=== PATIENT | male | born 1975 | race Caucasian/White ===

== ENCOUNTER 2020-09-13 10:38 | Emergency (ER) | payer BC ==
[2020-09-13] MEDS ORDERED: AZITHROMYCIN 250 MG TAB ONE (13:13)
[2020-09-13] MEDS ORDERED: dexAMETHasone 10 MG/ML VIAL ONE (13:14)
--- NOTE | 2020-09-13 13:39 | EDPHYS ---
Physician Documentation [facility] Name: Amauri Estrada Age: 45 yrs Sex: Male : 1975 Arrival Date: 09/13/2020 Time: 10:41 Bed 19 Private MD: Antonio Hill T ED Physician Dominick Luque HPI: 09/13 12:26 This 45 yrs old Male presents to ER via Ambulatory with complaints of carlitos Breathing Difficulty, COVID+. 13:36 Onset: The symptoms/episode began/occurred gradually, 7 day(s) ago. Duration: The [facility] symptoms are continuous. Associated signs and symptoms: Pertinent positives: non-productive cough. This is a 45 year old male with no chronic medical conditions that presents to the ED with complaints of cough, shortness of breath. Patient is covid 19 positive. Symptoms have been ongoing since this past . . Historical: - Allergies: 11:16 No Known Allergies; aa5 - PMHx: 11:16 None; aa5 - PSHx: 11:16 None; aa5 - Immunization history:: Adult Immunizations unknown. - Social history:: Smoking status: Patient denies any tobacco usage or history of. ROS: 12:27 Eyes: Negative for injury, pain, redness, and discharge, ENT: Negative for injury, carlitos pain, and discharge, Neck: Negative for injury, pain, and swelling, Abdomen/GI: Negative for abdominal pain, nausea, vomiting, diarrhea, and constipation, Back: Negative for injury and pain, : Negative for injury, bleeding, discharge, and swelling, MS/Extremity: Negative for injury and deformity, Skin: Negative for injury, rash, and discoloration, Neuro: Negative for headache, weakness, numbness, tingling, and seizure, Psych: Negative for depression, anxiety, suicide ideation, homicidal ideation, and hallucinations, Allergy/Immunology: Negative for hives, rash, and allergies, Endocrine: Negative for neck swelling, polydipsia, polyuria, polyphagia, and marked weight changes, Hematologic/Lymphatic: Negative for swollen nodes, abnormal bleeding, and unusual bruising. 12:27 Constitutional: Positive for body aches, fatigue, fever, malaise. 12:27 Cardiovascular: Positive for chest pain. 12:27 Respiratory: Positive for cough, shortness of breath, wheezing, of the left posterior upper lobe, left posterior lower lobe, right posterior middle lobe and right posterior lower lobe. Exam: 12:27 Constitutional: This is a well developed, well nourished patient who is awake, alert, carlitos and in no acute distress. Head/Face: Normocephalic, atraumatic. Eyes: Pupils equal round and reactive to light, extra-ocular motions intact. Lids and lashes normal. Conjunctiva and sclera are non-icteric and not injected. Cornea within normal limits. Periorbital areas with no swelling, redness, or edema. ENT: Nares patent. No nasal discharge, no septal abnormalities noted. Tympanic membranes are normal and external auditory canals are clear. Oropharynx with no redness, swelling, or masses, exudates, or evidence of obstruction, uvula midline. Mucous membranes moist. Neck: Trachea midline, no thyromegaly or masses palpated, and no cervical lymphadenopathy. Supple, full range of motion without nuchal rigidity, or vertebral point tenderness. No Meningismus. Chest/axilla: Normal chest wall appearance and motion. Nontender with no deformity. No lesions are appreciated. Cardiovascular: Regular rate and rhythm with a normal S1 and S2. No gallops, murmurs, or rubs. Normal PMI, no JVD. No pulse deficits. Abdomen/GI: Soft, non-tender, with normal bowel sounds. No distension or tympany. No guarding or rebound. No evidence of tenderness throughout. Back: No spinal tenderness. No costovertebral tenderness. Full range of motion. Male : Normal genitalia with no discharge or lesions. Skin: Warm, dry with normal turgor. Normal color with no rashes, no lesions, and no evidence of cellulitis. MS/ Extremity: Pulses equal, no cyanosis. Neurovascular intact. Full, normal range of motion. Neuro: Awake and alert, GCS 15, oriented to person, place, time, and situation. Cranial nerves II-XII grossly intact. Motor strength 5/5 in all extremities. Sensory grossly intact. Cerebellar exam normal. Normal gait. Psych: Awake, alert, with orientation to person, place and time. Behavior, mood, and affect are within normal limits. 12:27 Respiratory: mild respiratory distress is noted, Respirations: labored breathing, that is mild, asymmetrical chest movement, is not seen, accessory muscle usage, is absent, grunting, is not present, nasal flaring, is not appreciated, paradoxical chest movement, is absent, prolonged exhalation, is not present, Breath sounds: decreased breath sounds, rhonchi, wheezing: expiratory 12:27 Musculoskeletal/extremity: DVT Exam: No signs of deep vein thrombosis. no pain, no carlitos swelling, no tenderness, negative Homans' sign noted on exam, no appreciated bluish discoloration, no erythema, no increased warmth. 12:34 ECG was reviewed by the Attending Physician. [facility] Vital Signs: 11:16 BP 131 / 83; Pulse 78; Resp 18 S; Temp 98.7(O); Pulse Ox 98% on R/A; Weight 95.25 kg aa5 (R); Height 5 ft. 8 in. (172.72 cm) (R); 13:30 BP 126 / 85; Pulse 72; Resp 18; Temp 98.9; Pulse Ox 97% ; bp 11:16 Body Mass Index 31.93 (95.25 kg, 172.72 cm) aa5 MDM: 12:08 Patient medically screened. [facility] 12:29 Differential diagnosis: Bronchitis CHF exacerbation, Chronic Obstructive Pulmonary carlitos Disease pneumonia, pulmonary edema, Pulmonary Embolism reactive airway disease. Antibiotic administration: Rocephin and Zithromax given. The patient's Wells Deep Vein Thrombosis Score was calculated as follows: Total Score: 0-2 Pts- Low Risk. The patient's pulmonary embolism risk score was calculated as follows: Total Score: 0-2 points. This patient was found to be at low risk for a pulmonary embolism by using the Well's assessment criteria. Immunization status:. Data reviewed: vital signs, nurses notes, lab test result(s), EKG, radiologic studies, CT scan, plain films. Data reviewed:. 13:33 ED course: . alise 09/13 12:25 Order name: EKG; Complete Time: : [facility] EC:34 Rate is 76 beats/min. Rhythm is regular. QRS [place] is Normal. HI interval is normal. QRS carlitos interval is normal. QT interval is normal. No Q waves. T waves are Normal. No ST changes noted. Clinical impression: NSR w/ Non-specific ST/T Changes and No evidence of ischemia. Interpreted by me. Reviewed by me. Administered Medications: 12:38 CANCELLED (Duplicate Order): Aspirin 81 mg PO once jmm 12:38 CANCELLED (Duplicate Order): Pepcid 20 mg IVP once jmm 12:38 CANCELLED (Duplicate Order): Albuterol HFA Inhaler 4 puffs Inhalation once jmm 12:39 CANCELLED (Duplicate Order): NS 0.9% 500 ml IV at bolus once jmm 12:39 CANCELLED (Duplicate Order): NS 0.9% 1000 ml IV at 125 ml/hr continuous jmm 12:39 CANCELLED (Duplicate Order): Decadron - Dexamethasone 10 mg IVP once jmm 12:39 CANCELLED (Duplicate Order): Zithromax 500 mg IVPB once over 1 hrs; mix in 250 mL NS jmm 12:39 CANCELLED (Duplicate Order): Rocephin 1 grams IV at per protocol once; Given slow IV jmm push per pharmacy instructions 12:50 Drug: Decadron 10 mg Route: IM; Site: left deltoid; bp 13:03 Follow up: Response: No adverse reaction bp 12:50 Drug: AZITHromycin 500 mg Route: PO; bp 13:03 Follow up: Response: No adverse reaction bp Disposition: 09/14 08:16 Co-signature as Attending Physician, Dominick Luque MD I agree with the assessment and carlitos plan of care. Disposition: 09/13/20 13:38 Discharged to Home. Impression: Dyspnea, SARS-associated coronavirus as the cause of diseases classified elsewhere - covid 19. - Condition is Stable. - Discharge Instructions: Shortness of Breath, Shortness of Breath, Oxcg-xc-Rafk, Aspirin and Your Heart, COVID-19. - Prescriptions for Prednisone 20 mg Oral Tablet - take 3 tablet by ORAL route once daily for 5 days; 15 tablet. Zithromax Z- Chuy 250 mg Oral Tablet - take 1 tablet by ORAL route as directed for 5 days Day 1 - take two (2) tablets one time. Day 2, 3, 4 , 5 take one (1) tablet once daily.; 6 tablet. Albuterol Sulfate 90 mcg/actuation - inhale 1-2 puff by INHALATION route every 4-6 hours; 1 Inhaler. - Medication Reconciliation Form, Thank You Letter, Antibiotic Education, Prescription Opioid Use form. - Follow up: Antonio Hill; When: 2 - 3 days; Reason: Recheck today's complaints, Continuance of care, Re-evaluation by your physician. Follow up: Carlitos Graf; When: 2 - 3 days; Reason: Recheck today's complaints, Re-evaluation by your physician. - Problem is new. - Symptoms have improved. Signatures: Dispatcher [employer] EDMissy Leon, KARRI-Jil ZENG-Dominick Jang MD MD cha Mickail, Joel, PA PA jmm Calderon, Audri, RN RN aa5 Bo Hill RN RN bp Corrections: (The following items were deleted from the chart) 09/13 12:38 12:25 Aspirin 81 mg PO once ordered. [facility] : 12:25 Pepcid 20 mg IVP once ordered. [facility] : 12:25 Albuterol HFA Inhaler 4 puffs Inhalation once ordered. [facility] : 12:25 NS 0.9% 500 ml IV at bolus once ordered. [facility] : 12:25 NS 0.9% 1000 ml IV at 125 ml/hr continuous ordered. [facility] : 12:25 Decadron - Dexamethasone 10 mg IVP once ordered. [facility] : 12:25 Zithromax 500 mg IVPB once over 1 hrs; mix in 250 mL NS ordered. [facility] : 12:25 Rocephin 1 grams IV at per protocol once; Given slow IV push per pharmacy [facility] instructions ordered. [facility] : 12:25 Cardiac monitoring ordered. [facility] : 12:25 EKG - Nurse/Tech ordered. [facility] : 12:25 IV Saline Lock ordered. [facility] : 12:25 O2 Sat Monitoring ordered. [facility] : 12:25 Labs collected and sent ordered. [facility] : 12:25 Oxygen Per Protocol ordered. [facility] : 12:25 BASIC METABOLIC PANEL+C.LAB.BRZ ordered. [facility] : 12:25 HEPATIC FUNCTION+C.LAB.BRZ ordered. [facility] : 12:25 PROTIME (+INR)+COAG.LAB.BRZ ordered. [facility] : 12:25 CBC+H.LAB.BRZ ordered. [facility] : 12:25 MAGNESIUM+C.LAB.BRZ ordered. [facility] 12:44 12:25 PROBNP+C.LAB.BRZ ordered. [facility] 12:44 12:25 TROPONIN (EMERG DEPT USE ONLY)+C.LAB.BRZ ordered. [facility] EDMS 12:56 12:28 Chest For PE Angio+CT.RAD.BRZ ordered. [facility] EDMS 13:13 12:26 Chest Single View+RAD.RAD.BRZ ordered. [facility] 13:36 13:33 ED course: This is a 45 year old male with no chronic medical conditions that alise presents to the ED with complaints of cough, shortness of breath. Patient is covid 19 positive. Symptoms have been ongoing since this past . . [facility] 13:46 13:38 09/13/2020 13:38 Discharged to Home. Impression: Dyspnea; SARS-associated kb coronavirus as the cause of diseases classified elsewhere - covid 19. Condition is Stable. Discharge Instructions: Shortness of Breath, Shortness of Breath, Mdus-za-Bgrl, Aspirin and Your Heart, COVID-19. Prescriptions for dexamethasone 2 mg Oral tablet - take 1 tablet by ORAL route 3 times per day; 15 tablet, Pepcid 20 mg Oral Tablet - take 1 tablet by ORAL route every 12 hours for 10 days; 20 tablet, Albuterol Sulfate 90 mcg/actuation - inhale 1-2 puff by INHALATION route every 4-6 hours; 1 Inhaler, Zithromax 500 mg Oral Tablet - take 1 tablet by ORAL route once daily for 5 days; 5 tablet. and Forms are Medication Reconciliation Form, Thank You Letter, Antibiotic Education, Prescription Opioid Use. Follow up: Antonio Hill; When: 2 - 3 days; Reason: Recheck today's complaints, Continuance of care, Re-evaluation by your physician. Follow up: Carlitos Graf; When: 2 - 3 days; Reason: Recheck today's complaints, Re-evaluation by your physician. Problem is new. Symptoms have improved. alise
--- NOTE | 2020-09-13 13:39 | ER ---
Nurse's Notes [facility] Name: Amauri Estrada Age: 45 yrs Sex: Male : 1975 Arrival Date: 09/13/2020 Time: 10:41 Bed 19 Private MD: Antonio Hill T Diagnosis: Dyspnea;SARS-associated coronavirus as the cause of diseases classified elsewhere-covid 19 Presentation: 09/13 11:15 Chief complaint: Patient states: Diagnosed with COVID-19 on Tuesday. Pt reports SOB and aa5 cough. Coronavirus screen: cough unrelated to allergies, shortness of breath, Client presents with at least one sign or symptom that may indicate coronavirus-19. Standard/surgical mask placed on the client. Provider contacted for isolation considerations. Ebola Screen: Patient negative for fever greater than or equal to 101.5 degrees Fahrenheit, and additional compatible Ebola Virus Disease symptoms. Initial Sepsis Screen: Does the patient meet any 2 criteria? No. Patient's initial sepsis screen is negative. Does the patient have a suspected source of infection? No. Patient's initial sepsis screen is negative. Risk Assessment: Do you want to hurt yourself or someone else? Patient reports no desire to harm self or others. Onset of symptoms was August 2020. 11:15 Method Of Arrival: Ambulatory aa5 11:15 Acuity: ZION 3 aa5 Triage Assessment: 11:15 General: Appears in no apparent distress. uncomfortable, ill, Behavior is cooperative, bp appropriate for age, anxious. Pain: Denies pain. EENT: No deficits noted. Neuro: No deficits noted. Cardiovascular: Rhythm is sinus rhythm. Respiratory: Reports shortness of breath cough that is Onset: The symptoms/episode began/occurred at an unknown time. the patient has mild shortness of breath. GI: No signs and/or symptoms were reported involving the gastrointestinal system. : No signs and/or symptoms were reported regarding the genitourinary system. Derm: No deficits noted. Musculoskeletal: No deficits noted. Historical: - Allergies: 11:16 No Known Allergies; aa5 - PMHx: 11:16 None; aa5 - PSHx: 11:16 None; aa5 - Immunization history:: Adult Immunizations unknown. - Social history:: Smoking status: Patient denies any tobacco usage or history of. Screenin:15 Abuse screen: Denies threats or abuse. Denies injuries from another. bp 11:15 Nutritional screening: No deficits noted. Tuberculosis screening: No symptoms or risk bp factors identified. Fall Risk None identified. Assessment: 11:15 General: SEE TRIAGE NOTE. Cardiovascular: Rhythm is sinus rhythm. Respiratory: Airway bp is patent Respiratory effort is even, unlabored, Breath sounds are clear bilaterally. 12:30 Reassessment: Patient appears in no apparent distress at this time. No changes from bp previously documented assessment. Patient and/or family updated on plan of care and expected duration. Pain level reassessed. Patient is alert, oriented x 3, equal unlabored respirations, skin warm/dry/pink. 14:06 Reassessment: PT D/C HOME AMBULATORY, DX WITH DYSPNEA. bp Vital Signs: 11:16 BP 131 / 83; Pulse 78; Resp 18 S; Temp 98.7(O); Pulse Ox 98% on R/A; Weight 95.25 kg aa5 (R); Height 5 ft. 8 in. (172.72 cm) (R); 13:30 BP 126 / 85; Pulse 72; Resp 18; Temp 98.9; Pulse Ox 97% ; bp 11:16 Body Mass Index 31.93 (95.25 kg, 172.72 cm) aa5 ED Course: 10:41 Patient arrived in ED. ag5 10:42 Antonio Hill MD is Private Physician. ag5 11:15 Arm band placed on. aa5 11:15 Patient has correct armband on for positive identification. Bed in low position. Call bp light in reach. Side rails up X2. 11:16 Triage completed. aa5 12:07 Dominick Luque MD is Attending Physician. carlitos 12:38 Flaco Rushing PA is PHCP. [facility] 12:45 Bo Hill, SHAMEKA is Primary Nurse. bp 13:38 Antonio Hill MD is Referral Physician. jmm 13:38 Carlitos Graf MD is Referral Physician. [facility] 14:06 No provider procedures requiring assistance completed. Patient did not have IV access bp during this emergency room visit. Administered Medications: 12:38 CANCELLED (Duplicate Order): Aspirin 81 mg PO once jm 12:38 CANCELLED (Duplicate Order): Pepcid 20 mg IVP once [facility] 12:38 CANCELLED (Duplicate Order): Albuterol HFA Inhaler 4 puffs Inhalation once m 12:39 CANCELLED (Duplicate Order): NS 0.9% 500 ml IV at bolus once m 12:39 CANCELLED (Duplicate Order): NS 0.9% 1000 ml IV at 125 ml/hr continuous jmm 12:39 CANCELLED (Duplicate Order): Decadron - Dexamethasone 10 mg IVP once [facility] 12:39 CANCELLED (Duplicate Order): Zithromax 500 mg IVPB once over 1 hrs; mix in 250 mL NS [facility] 12:39 CANCELLED (Duplicate Order): Rocephin 1 grams IV at per protocol once; Given slow IV m push per pharmacy instructions 12:50 Drug: Decadron 10 mg Route: IM; Site: left deltoid; bp 13:03 Follow up: Response: No adverse reaction bp 12:50 Drug: AZITHromycin 500 mg Route: PO; bp 13:03 Follow up: Response: No adverse reaction bp Outcome: 13:38 Discharge ordered by . [facility] 13:46 Patient left the ED. kb 14:06 Discharged to home ambulatory. bp 14:06 Condition: stable 14:06 Discharge instructions given to patient, Instructed on discharge instructions, follow up and referral plans. medication usage, Demonstrated understanding of instructions, follow-up care, medications, Prescriptions given X 3. Signatures: Missy Pierce, B[employer]IAL VAULT SETTER-C B[employer]IAL VAULT SETTER-Dominick Jang MD MD cha Mickail, Joel, PA PA jmm Calderon, Audri, RN RN aa5 Bo Hill RN RN Arlyn Bauer 5
[2020-09-13 13:51] VITALS: BP 131/83; TEMP 98.7; O2SAT 98
== END 2020-09-13 13:46 | disposition home or self-care (01) ==
LOC: ER 10:38
DX: U07.1 COVID-19 (principal); R06.00 Dyspnea, unspecified
CPT/HCPCS: 96372; 99284; J1100

== ENCOUNTER 2024-01-30 22:30 | Emergency (ER) | payer BC ==
[2024-01-30] MEDS ORDERED: ASPIRIN 81 MG CHEWABLE TABLET ONE (22:54)
[2024-01-30] MEDS ORDERED: ONDANSETRON 4 MG/2 ML VIAL ONE (22:54)
[2024-01-30] MEDS ORDERED: MORPHINE 4 MG/ML SYR ONE (22:54)
[2024-01-30] MEDS ORDERED: DIAZEPAM 5 MG TABLET ONE (22:55)
[2024-01-30 23:02] LABS: Absolute Basophils 0.1 K/uL (0-0.5); Absolute Eosinophils 0.1 K/uL (0-0.5); Absolute Lymphocytes (CBC) 1.8 K/uL (0.7-4.9); Absolute Monocytes 0.8 K/uL (0.1-1.3); Absolute Neutrophil 5.7 K/uL (1.8-8.0); Basophils % 0.7 % (0-1.3); Eosinophils % 0.7 % (0-4.4); Hematocrit 45.8 % (39.6-49.0); Hemoglobin 15.7 g/dL (13.6-17.9); Lymphocytes % 21.1 % (15.3-44.8); MCH 32.1 pg (27.0-35.0); MCHC 34.3 g/dL (32.0-36.0); MCV 93.5 fL (80-100); MPV 8.2 fL (7.6-11.3); Monocytes % 9.8 % (3.3-12.3); Neutrophils % 67.7 % (41.7-73.7); Nucleated Red Blood Cells % 0.1 % (0-0); Platelets 283 thou/uL (152-406)
[2024-01-30 23:04] LABS: PT Prothrombin Time 10.1 SECONDS (9.5-12.5); Protime INR 0.92
[2024-01-30 23:14] LABS: Anion Gap 11.3 mEq/L (5.0-15.0); Bilirubin Direct 0.2 mg/dL (0-0.2); Bilirubin Indirect, Calculated 0.5 mg/dL (0.2-0.8); Bilirubin Total 0.7 mg/dL (0.2-1.0); Magnesium 2.5 mg/dL (1.6-2.4); Potassium 3.3 mEq/L (3.5-5.1); Troponin High Sensitivity 25.9 pg/mL (<58.9)
--- NOTE | 2024-01-31 02:44 | ER ---
Nurse's Notes [facility] Name: Amauri Estrada Age: 48 yrs Sex: Male : 1975 Arrival Date: 01/30/2024 Time: 22:30 Bed 17 Private MD: Diagnosis: Noncardiac chest pain, elevated blood pressure Presentation: 01/29 22:45 Chief complaint: Patient states: Pt c/o non-reproducible, non-radiating midsternal tl4 chest pressure and left arm pain since 1999 tonight. Pt states pain started at dinner and feels like indigestion. Pt states he has felt 'bad' all day. Pt denies nausea, diaphoresis, SOB. Coronavirus screen: At this time, the client does not indicate any symptoms associated with coronavirus-19. Ebola Screen: No symptoms or risks identified at this time. Initial Sepsis Screen: Does the patient meet any 2 criteria? No. Patient's initial sepsis screen is negative. Does the patient have a suspected source of infection? No. Patient's initial sepsis screen is negative. Risk Assessment: Do you want to hurt yourself or someone else? Patient reports no desire to harm self or others. Onset of symptoms was January 30, 2024 at 20:00. 22:45 Method Of Arrival: Ambulatory tl4 22:45 Acuity: ZION 2 tl4 Triage Assessment: 22:48 General: Appears uncomfortable, Behavior is calm, cooperative. Pain: Complains of pain tl4 in chest and left arm. EENT: No signs and/or symptoms were reported regarding the EENT system. Neuro: Level of Consciousness is awake, alert, obeys commands, Oriented to person, place, time, situation, Moves all extremities. Full function Gait is steady, Speech is normal. Cardiovascular: Reports chest pain, fatigue, Denies diaphoresis, lightheadedness, nausea, palpitations, shortness of breath, syncope, Capillary refill < 3 seconds Patient's skin is warm and dry. Respiratory: Airway is patent Respiratory effort is even, unlabored, Respiratory pattern is regular, symmetrical. GI: No signs and/or symptoms were reported involving the gastrointestinal system. : No signs and/or symptoms were reported regarding the genitourinary system. Derm: No signs and/or symptoms reported regarding the dermatologic system. Musculoskeletal: No signs and/or symptoms reported regarding the musculoskeletal system. Historical: - Allergies: 22:47 No Known Allergies; tl4 - Home Meds: 22:47 None [Active]; tl4 - PMHx: 22:47 None; tl4 - PSHx: 22:47 None; tl4 - Immunization history:: Adult Immunizations unknown. - Infectious Disease History:: Denies. - Social history:: Smoking status: Patient denies any tobacco usage or history of. - Family history:: not pertinent. Screenin:[address] [facility] ED Fall Risk Assessment (Adult) History of falling in the last 3 months, tl4 including since admission No falls in past 3 months (0 pts) Confusion or Disorientation No (0 pts) Intoxicated or Sedated No (0 pts) Impaired Gait No (0 pts) Mobility Assist Device Used No (0 pt) Altered Elimination No (0 pt) Score/Fall Risk Level 0 - 2 = Low Risk Oriented to surroundings, Maintained a safe environment, Educated pt \T\ family on fall prevention, incl call for assistance when getting out of bed, Assessed \T\ reinforced patient's understanding of fall precautions. Abuse screen: Denies threats or abuse. Denies injuries from another. Nutritional screening: No deficits noted. Tuberculosis screening: No symptoms or risk factors identified. Assessment: 22:32 General: Appears uncomfortable, Behavior is cooperative, anxious. Pain: Complains of ha1 pain in chest and behind the eyes Pain does not radiate. Pain currently is 7 out of 10 on a pain scale. Quality of pain is described as pressure, Pain began suddenly. Neuro: Level of Consciousness is awake, alert, obeys commands, Oriented to person, place, time, situation. Cardiovascular: Reports chest pain, Heart tones S1 S2 present Capillary refill < 3 seconds Patient's skin is warm and dry. Pulses are all present. Rhythm is sinus rhythm. Respiratory: Airway is patent Respiratory effort is even, unlabored, Respiratory pattern is regular, symmetrical. Derm: Skin is pink, warm \T\ dry. Musculoskeletal: Circulation, motion, and sensation intact. Range of motion: intact in all extremities. 23:00 Reassessment: Patient and/or family updated on plan of care and expected duration. Pain ha1 level reassessed. 23:56 Reassessment: Patient and/or family updated on plan of care and expected duration. Pain ha1 level reassessed. Patient is alert, oriented x 3, equal unlabored respirations, skin warm/dry/pink. pain 4/10 Patient states feeling better. Patient states symptoms have improved. 01/30 01:00 Reassessment: Patient and/or family updated on plan of care and expected duration. Pain ha1 level reassessed. Patient is alert, oriented x 3, equal unlabored respirations, skin warm/dry/pink. Patient states feeling better. Patient states symptoms have improved. 02:00 Reassessment: Patient and/or family updated on plan of care and expected duration. Pain ha1 level reassessed. Patient is alert, oriented x 3, equal unlabored respirations, skin warm/dry/pink. pain 2/10 Patient states feeling better. Patient states symptoms have improved. 02:55 Reassessment: Patient and/or family updated on plan of care and expected duration. Pain ha1 level reassessed. Patient is alert, oriented x 3, equal unlabored respirations, skin warm/dry/pink. Patient denies pain at this time. Patient states feeling better. Patient states symptoms have improved. Vital Signs: 01/29 22:45 BP 175 / 115; Pulse 91; Resp 16; Temp 98.4(O); Pulse Ox 99% on R/A; Weight 95.25 kg; tl4 Height 5 ft. 8 in. ; Pain 6/10; 23:56 BP 158 / 106; Pulse 88; Resp 17 S; Pulse Ox 99% on R/A; ha1 01/30 00:24 BP 166 / 122; Pulse 79; Resp 17 S; Pulse Ox 96% on R/A; ha1 00:57 BP 163 / 111; Pulse 77; Resp 16 S; Pulse Ox 98% on R/A; ha1 01:15 BP 153 / 104; Pulse 78; Resp 16 S; Pulse Ox 100% on R/A; ha1 02:00 BP 161 / 102; Pulse 78; Resp 15 S; Pulse Ox 96% on R/A; ha1 02:57 BP 146 / 102; Pulse 74; Resp 16 S; Temp 98.1; Pulse Ox 98% on R/A; ha1 01/29 22:45 Body Mass Index 31.93 (95.25 kg, 172.72 cm) tl4 01/29 22:45 Pain Scale: Adult tl4 Stockwell Coma Score: 03:53 Eye Response: spontaneous(4). Motor Response: obeys commands(6). Verbal Response: sp4 oriented(5). Total: 15. ED Course: 01/29 22:30 Patient arrived in ED. mr 22:31 Emeka Mcleod MD is Attending Physician. sp4 22:44 EKG done, by ED staff, reviewed by Emeka Mcleod MD. tl4 22:45 Patient has correct armband on for positive identification. Placed in gown. Bed in low tl4 position. Call light in reach. Side rails up X 1. Provided Education on: ED process, call artis. Client placed on continuous cardiac and pulse oximetry monitoring. NIBP monitoring applied. vehicle monitor technician on. 22:47 Triage completed. tl4 22:50 O2 via room air. tl4 22:50 Inserted saline lock: 22 gauge in left antecubital area, using aseptic technique. Blood lg3 collected. 23:27 XRAY Chest (1 view) In Process Unspecified. EDMS 23:56 Prisca Wong, SHAMEKA is Primary Nurse. ha1 01/30 02:43 Johnathon Salter DO is Referral Physician. sp4 02:43 Matthew Curiel MD is Referral Physician. sp4 03:02 No provider procedures requiring assistance completed. IV discontinued, intact, ha1 bleeding controlled, No redness/swelling at site. Pressure dressing applied. 03:04 Arm band placed on right wrist. ha1 Administered Medications: 01/29 22:59 Drug: Diazepam PO 5 mg PO once Route: PO; lg3 23:25 Follow up: Response: No adverse reaction; Marked relief of symptoms; Anxiety decreased ha1 22:59 Drug: Aspirin PO Chewable Tablet 324 mg PO once; 81 mg tablets x 4 Route: PO; lg3 23:25 Follow up: Response: No adverse reaction; Marked relief of symptoms ha1 22:59 Drug: morphine IVP or IV 4 mg IVP once over 4 mins Route: IVP; Infused Over: 4 mins; lg3 Site: left antecubital; 23:25 Follow up: Response: No adverse reaction; Marked relief of symptoms; Pain is decreased; ha1 RASS: Alert and Calm (0) 22:59 Drug: Ondansetron IVP 4 mg IVP once; over 2 minutes Route: IVP; Site: left antecubital; lg3 23:25 Follow up: Response: No adverse reaction; Marked relief of symptoms ha1 Medication: 22:49 VIS not applicable for this client. tl4 Outcome: 01/30 02:44 Discharge ordered by . bob 03:02 Discharged to home ambulatory, ha1 03:02 Condition: stable 03:02 Discharge instructions given to patient, Instructed on discharge instructions, follow up and referral plans. Demonstrated understanding of instructions, follow-up care, 03:06 Patient left the ED. ha1 Signatures: Dispatcher [employer] EDMS Michaela Gill, Reg Reg mr Betsy Leon, RN RN lg3 Prisca Wong, RN RN ha1 Emeka Mcleod MD MD sp4 Wenceslao Sherman RN RN tl4
--- NOTE | 2024-01-31 02:44 | EDPHYS ---
Physician Documentation [facility] Name: Amauri Estrada Age: 48 yrs Sex: Male : 1975 Arrival Date: 01/30/2024 Time: 22:30 Bed 17 Private MD: ED Physician Emeka Mcleod HPI: 01/29 22:32 This 48 yrs old Male presents to ER via Unassigned with complaints of Chest sp4 Tightness, Numbness Of Hand. 01/30 03:53 Patient is a basically healthy 48-year-old male who presents with acute onset chest sp4 discomfort associated with numbness of the left hand. Patient states this occurred while he was eating dinner. Patient states he is going through divorce currently. . Historical: - Allergies: 01/29 22:47 No Known Allergies; tl4 - Home Meds: 22:47 None [Active]; tl4 - PMHx: 22:47 None; tl4 - PSHx: 22:47 None; tl4 - Immunization history:: Adult Immunizations unknown. - Infectious Disease History:: Denies. - Social history:: Smoking status: Patient denies any tobacco usage or history of. - Family history:: not pertinent. ROS: 01/30 03:53 Constitutional: Negative for fever, chills, and weight loss, positive for chest sp4 pressure left arm numbness All other systems are negative, Exam: 02:37 ECG was reviewed by the Attending Physician. EKG 2238 normal sinus rhythm, rate 92 sp4 03:53 Constitutional: This is a well developed, well nourished patient who is awake, alert, sp4 and in no acute distress. Head/Face: Normocephalic, atraumatic. Eyes: Pupils equal round and reactive to light, extra-ocular motions intact. Lids and lashes normal. Conjunctiva and sclera are not injected. Cornea within normal limits. Periorbital areas with no swelling, redness, or edema. ENT: Nares patent. No nasal discharge, no septal abnormalities noted. Tympanic membranes are normal and external auditory canals are clear. Oropharynx with no redness, swelling, or masses, exudates, or evidence of obstruction, uvula midline. Mucous membranes moist. Neck: Trachea midline, no thyromegaly or masses palpated, and no cervical lymphadenopathy. Supple, full range of motion without nuchal rigidity, or vertebral point tenderness. Chest/axilla: Normal chest wall appearance and motion. Nontender with no deformity. No lesions are appreciated. Cardiovascular: Regular rate and rhythm with a normal S1 and S2. No gallops, murmurs, or rubs. Normal PMI, no JVD. No pulse deficits. Respiratory: Lungs have equal breath sounds bilaterally, clear to auscultation and percussion. No rales, rhonchi or wheezes noted. No increased work of breathing, no retractions or nasal flaring. Abdomen/GI: Soft, with normal bowel sounds. No distension or tympany. No guarding or rebound. No evidence of tenderness throughout. Back: No spinal tenderness. No costovertebral tenderness. Skin: Warm, dry with normal turgor. Normal color with no rashes, no lesions, and no evidence of cellulitis. MS/ Extremity: Pulses equal, no cyanosis. Neurovascular intact. Full, normal range of motion. Neuro: Awake and alert, GCS 15, oriented to person, place, time, and situation. Cranial nerves II-XII grossly intact. Motor strength 5/5 in all extremities. Sensory grossly intact. Psych: Awake, alert, with orientation to person, place and time. Behavior, mood, and affect are within normal limits Vital Signs: 01/29 22:45 BP 175 / 115; Pulse 91; Resp 16; Temp 98.4(O); Pulse Ox 99% on R/A; Weight 95.25 kg; tl4 Height 5 ft. 8 in. ; Pain 6/10; 23:56 BP 158 / 106; Pulse 88; Resp 17 S; Pulse Ox 99% on R/A; ha1 01/30 00:24 BP 166 / 122; Pulse 79; Resp 17 S; Pulse Ox 96% on R/A; ha1 00:57 BP 163 / 111; Pulse 77; Resp 16 S; Pulse Ox 98% on R/A; ha1 01:15 BP 153 / 104; Pulse 78; Resp 16 S; Pulse Ox 100% on R/A; ha1 02:00 BP 161 / 102; Pulse 78; Resp 15 S; Pulse Ox 96% on R/A; ha1 02:57 BP 146 / 102; Pulse 74; Resp 16 S; Temp 98.1; Pulse Ox 98% on R/A; ha1 01/29 22:45 Body Mass Index 31.93 (95.25 kg, 172.72 cm) tl4 01/29 22:45 Pain Scale: Adult tl4 Honey Coma Score: 03:53 Eye Response: spontaneous(4). Motor Response: obeys commands(6). Verbal Response: sp4 oriented(5). Total: 15. MDM: 01/29 22:32 Patient medically screened. 4 01/30 02:37 ED course: EXAM: ONE VIEW CHEST X-RAY INDICATION: CHEST PAIN. 48-year-old male. sp4 COMPARISON: Chest x-ray 07/01/2022 FINDINGS: A single AP portable view of the chest was obtained. No consolidation, pulmonary edema, or significant pleural effusion. Cardiac silhouette is normal in size. Mild multilevel thoracic spondylosis. IMPRESSION: 1. No acute cardiopulmonary process. Electronically signed by: Johnnie Hallman MD 01/30/2024 11:47 PM CDT. 03:53 Differential diagnosis: acute pericarditis, anxiety, coronary artery disease chest wall sp4 pain, congestive heart failure costochondritis. HEART Score: History: Slightly Suspicious (0), ECG: Normal (0), Age: > 45 and < 65 years (1), Risk Factors: No Risk Factors Known (0), Troponin: < or = 1 x Normal Limit (0), Total Score = 1. The patient was given aspirin in the Emergency Department. Data reviewed: vital signs, nurses notes, old medical records, lab test result(s), EKG, radiologic studies, plain films. ED course: Stable for discharge home will recommend follow-up with cardiology,. 01/29 22:32 Order name: Basic Metabolic Panel; Complete Time: 02:36 [facility] 01/29 22:32 Order name: CBC with Diff; Complete Time: 02:36 [facility] 01/29 22:32 Order name: LFT's; Complete Time: 02:36 [facility] 01/29 22:32 Order name: Magnesium; Complete Time: 02:36 [facility] 01/29 22:32 Order name: NT PRO-BNP; Complete Time: 02:36 [facility] 01/29 22:32 Order name: PT-INR; Complete Time: 02:36 [facility] 01/29 22:32 Order name: Troponin HS; Complete Time: 02:36 [facility] 01/30 01:24 Order name: Troponin HS; Complete Time: 02:36 pf1 01/29 22:32 Order name: XRAY Chest (1 view) sp4 01/29 22:32 Order name: EKG; Complete Time: 22:32 sp4 01/29 22:32 Order name: Cardiac monitoring; Complete Time: 22:51 sp4 01/29 22:32 Order name: EKG - Nurse/Tech; Complete Time: 22:51 sp4 01/29 22:32 Order name: IV Saline Lock; Complete Time: 22:51 sp4 01/29 22:32 Order name: Labs collected and sent; Complete Time: 22:51 sp4 01/29 22:32 Order name: O2 Per Protocol; Complete Time: 22:51 sp4 01/29 22:32 Order name: O2 Sat Monitoring; Complete Time: 22:51 EC:37 Rate is 92 beats/min. Rhythm is regular, Normal Sinus Rhythm. QRS Foley is Normal. [place] sp4 interval is normal. QRS interval is normal. QT interval is normal. No Q waves. T waves are Normal. No ST changes noted. Clinical impression: No evidence of ischemia. Interpreted by me. Reviewed by me. Administered Medications: 01/29 22:59 Drug: Diazepam PO 5 mg PO once Route: PO; lg3 23:25 Follow up: Response: No adverse reaction; Marked relief of symptoms; Anxiety decreased ha1 22:59 Drug: Aspirin PO Chewable Tablet 324 mg PO once; 81 mg tablets x 4 Route: PO; lg3 23:25 Follow up: Response: No adverse reaction; Marked relief of symptoms ha1 22:59 Drug: morphine IVP or IV 4 mg IVP once over 4 mins Route: IVP; Infused Over: 4 mins; lg3 Site: left antecubital; 23:25 Follow up: Response: No adverse reaction; Marked relief of symptoms; Pain is decreased; ha1 RASS: Alert and Calm (0) 22:59 Drug: Ondansetron IVP 4 mg IVP once; over 2 minutes Route: IVP; Site: left antecubital; lg3 23:25 Follow up: Response: No adverse reaction; Marked relief of symptoms ha1 Disposition Summary: 01/31/24 02:44 Discharge Ordered Notes: Please see Primary MD as advised for blood pressure management Location: Home sp4 Problem: new sp4 Symptoms: have improved sp4 Condition: Stable sp4 Diagnosis - Noncardiac chest pain, elevated blood pressure sp4 Followup: sp4 - With: Johnathon Salter DO - When: 7 - 10 days - Reason: Recheck today's complaints Followup: sp4 - With: Matthew Curiel MD - When: 7 - 10 days - Reason: Recheck today's complaints Discharge Instructions: - Discharge Summary Sheet sp4 - Hypertension, Adult, [id number] sp4 Forms: - Patient Portal Instructions sp4 Signatures: Dispatcher [employer] Betsy De La Vega RN RN lg3 Emeka Mcleod MD MD sp4 Wenceslao Sherman RN RN tl4 Prisca Wong RN ha1
[2024-01-31 03:48] VITALS: BP 146/102; TEMP 98.1; O2SAT 98
--- NOTE | 2024-01-31 10:59 | EKG ---
Test Date: 2024-01-30 Test Time: 22:38:25 [employer]: TL MEASUREMENT RESULTS: Intervals: Rate: 92 NM: 148 QRSD: 90 QT: 378 QTc: 467 [place]: P: 59 NM: 148 QRS: -65 T: 2 INTERPRETIVE STATEMENTS: Normal sinus rhythm Left anterior fascicular block Abnormal ECG Compared to ECG 12/08/2004 06:32:00 Left anterior fascicular block now present Electronically Signed On 01-31-24 10:58:42 CDT by Aaron Ley
--- NOTE | 2024-01-31 13:36 | RAD REPORT ---
EXAM DESCRIPTION: RAD - Chest Single View - 01/30/2024 11:26 pm CLINICAL HISTORY: CHEST PAIN. 48-year-old male. COMPARISON: Chest x-ray 07/01/2022 FINDINGS: A single AP portable view of the chest was obtained. No consolidation, pulmonary edema, or significant pleural effusion. Cardiac silhouette is normal in size. Mild multilevel thoracic spondyl osis. IMPRESSION: 1. No acute cardiopulmonary process. Electronically signed by: Johnnie Hallman MD 01/30/2024 11:47 PM CDT Due to temporary technical issues with the PACS/Fluency reporting system, reports are being signed by the in house radiologist without review as a courtesy to ensure prompt reporting. The interpreting r adiologist is fully responsible for the content of the report.
== END 2024-01-31 03:06 | disposition home or self-care (01) ==
LOC: ER 22:30
DX: R07.89 Other chest pain (principal); R03.0 Elevated blood-pressure reading, without diagnosis of hypertension
CPT/HCPCS: 93005; 85025; 80048; 36415; 83735; 85610; 80076; 84484 ×2; 83880; 71045; 96375; 96374; 99285; J2405

== ENCOUNTER 2024-12-03 11:48 | Day surgery (SDC) | payer BC ==
[2024-11-30 15:00] LABS: Absolute Lymphocytes (CBC) 1.5 K/uL (0.7-4.9); Absolute Monocytes 0.5 K/uL (0.1-1.3); Absolute Neutrophil 3.6 K/uL (1.8-8.0); Basophils % 0.6 % (0-1.3); Eosinophils % 0.7 % (0-4.4); Hematocrit 44.6 % (39.6-49.0); Hemoglobin 15.6 g/dL (13.6-17.9); Lymphocytes % 25.9 % (15.3-44.8); MCH 32.4 pg (27.0-35.0); MCV 92.6 fL (80-100); MPV 8.2 fL (7.6-11.3); Monocytes % 9.6 % (3.3-12.3); Neutrophils % 63.2 % (41.7-73.7); Nucleated Red Blood Cells % 0.1 % (0-0); Platelets 245 thou/uL (152-406); RBC Red Blood Cell Count 4.81 M/uL (4.33-5.43); Red Cell Distribution Width 12.5 % (12.1-15.2)
[2024-11-30 15:19] LABS: Anion Gap 8.6 mEq/L (5.0-15.0); Potassium 3.6 mEq/L (3.5-5.1)
[2024-12-03] MEDS: Ringers Lactate 1,000 ML IV ONE (12:00)
[2024-12-03] MEDS ORDERED: propofoL 200 MG/20 ML VIAL IV ONE (12:47)
[2024-12-03] MEDS ORDERED: LIDOCAINE 1% MPF 5 ML VIAL ONE (12:48)
[2024-12-03 16:07] VITALS: BP 144/89; TEMP 98.6; O2SAT 95
--- NOTE | 2024-12-05 12:51 | EKG ---
Test Date: 2024-11-30 Test Time: 14:46:02 Web Applications Developer: MEASUREMENT RESULTS: Intervals: Rate: 57 CT: 150 QRSD: 98 QT: 422 QTc: 410 [place]: P: 42 CT: 150 QRS: -25 T: -23 INTERPRETIVE STATEMENTS: Sinus bradycardia Minimal voltage criteria for LVH, may be normal variant Nonspecific T wave abnormality Abnormal ECG Compared to ECG 01/30/2024 22:38:25 Left ventricular hypertrophy now present T-wave abnormality now present Sinus rhythm no longer present Left anterior fascicular block no longer present Electronically Signed On 12-05-24 12:33:16 CDT by Aaron Ley
== END 2024-12-03 13:53 | disposition home or self-care (01) ==
LOC: OR 11:48
PROVIDERS: ATTEND Surgery
PROC: 0DBN8ZX Excision of Sigmoid Colon, Via Natural or Artificial Opening Endoscopic, Diagnostic (ICD-10-PCS; principal; 2024-12-03 13:15)
DX: Z12.11 Encounter for screening for malignant neoplasm of colon (principal); K64.8 Other hemorrhoids; K52.9 Noninfective gastroenteritis and colitis, unspecified
CPT/HCPCS: 93005; 85025; 80048; 36415; 88305; 45380; J2704; J2003; J7120